=== PATIENT | male | born 1970 | race Caucasian/White ===

== ENCOUNTER → 2018-05-29 | Outpatient (CLI) | payer BC | LOC: M RAD 13:01 | DX: G56.22 Lesion of ulnar nerve, left upper limb (principal); M94.222 Chondromalacia, left elbow; M25.422 Effusion, left elbow | CPT/HCPCS: 73221 ==

== ENCOUNTER → 2019-12-21 | Outpatient (REF) | payer BC ==
[2019-12-21 17:13] LABS: BASO % 0.2 % (0.0-1.0); EOS # 0.2 10^3/uL (0.0-0.5); EOS % 2.2 % (0.0-3.0); HEMATOCRIT 45.2 % (42.0-52.0); HEMOGLOBIN 15.6 g/dl (13.5-17.5); LYMPH # 3.2 10^3/uL (1.5-5.0); LYMPH % 33.4 % (24.0-44.0); MEAN CORPUSCULAR HEMOGLOBIN 31.3 pg (27.0-33.0); MEAN CORPUSCULAR HGB CONC 34.5 g/dl (32.0-36.5); MEAN CORPUSCULAR VOLUME 90.6 fl (80.0-96.0); MONO # 0.9 10^3/uL (0.0-0.8); MONO % 9.3 % (0.0-5.0); NEUTROPHILS # 5.2 10^3/uL (1.5-8.5); NEUTROPHILS % 54.7 % (36.0-66.0); PLATELET COUNT, AUTOMATED 319 10^3/uL (150-450); RED BLOOD COUNT 4.99 10^6/uL (4.30-6.10); WHITE BLOOD COUNT 9.5 10^3/uL (4.0-10.0)
[2019-12-21 17:58] LABS: ALBUMIN 4.5 GM/DL (3.2-5.2); ALT/SGPT 39 U/L (12-78); BILIRUBIN,TOTAL 0.3 MG/DL (0.2-1.0); BLOOD UREA NITROGEN 19 MG/DL (7-18); C REACTIVE PROTEIN QUANTITATIV < 0.30 MG/DL (0.00-0.30); CALCIUM LEVEL 9.1 MG/DL (8.5-10.1); CARBON DIOXIDE LEVEL 25 MEQ/L (21-32); CHLORIDE LEVEL 106 MEQ/L (98-107); CREATININE FOR GFR 1.17 MG/DL (0.70-1.30); FERRITIN 180 NG/ML (26-388); GLOMERULAR FILTRATION RATE > 60.0 (>60); GLUCOSE, FASTING 97 MG/DL (70-100); IRON (FE) 107 UG/DL (65-175); RHEUMATOID FACTOR QUANT < 10.0 IU/ML (<15.0); SODIUM LEVEL 140 MEQ/L (136-145); TOTAL PROTEIN 7.4 GM/DL (6.4-8.2); URIC ACID 6.5 MG/DL (3.5-7.2)
[2019-12-21 18:11] LABS: ERYTHROCYTE SEDIMENTATION RATE 2 mm/hr (0-15)
[2019-12-22 11:59] LABS: HEPATITIS B SURFACE ANTIGEN NEGATIVE (NEGATIVE)
[2019-12-22 12:27] LABS: HEPATITIS C VIRUS ABY INDEX < 0.0 INDEX (<0.8)
[2019-12-24 00:08] LABS: CYCLIC CITRULLINATED PEPTIDE 8 units (0-19); HEPATITIS B CORE ANTIBODY IGG Negative (Negative)
== END ==
LOC: M SFHCRHEU 15:35
PROVIDERS: ATTEND Internal Medicine
DX: M25.50 Pain in unspecified joint (principal); E79.0 Hyperuricemia without signs of inflammatory arthritis and tophaceous disease

== ENCOUNTER → 2019-12-21 | Outpatient (CLI) | payer BC ==
--- NOTE | 2019-12-21 16:59 | REP ---
Clinical: Right foot pain. Technique: AP, lateral, bilateral oblique views of the right foot. Findings: Moderate arthritic changes at the first tarsometatarsal joint include subchondral sclerosis/heterogeneity, marginal spurring and joint space narrowing. Remainder examination demonstrates mild age-related changes. Lateral view demonstrates small calcaneal heal spur. Impression: Moderate arthritic changes at the first tarsometatarsal joint. Electronically Signed by Ronnell Kumar MD 12/21/2019 04:51 P
--- NOTE | 2019-12-21 17:07 | REP ---
Clinical: Polyarthralgia. Technique: AP, lateral, bilateral oblique views of the right and left hand. Findings: Right hand demonstrates mild arthritic changes at the first interphalangeal joint, first carpometacarpal joint, and interphalangeal joints including minimal subchondral sclerosis, joint space narrowing, and cortical irregularity. No acute fracture dislocation. Left hand demonstrates mild arthritic changes at the first interphalangeal joint, first carpometacarpal joint, and interphalangeal joints including minimal subchondral sclerosis, joint space narrowing, and cortical irregularity. No acute fracture dislocation. Impression: Mild symmetric arthritic degenerative changes. Electronically Signed by Ronnell Kumar MD 12/21/2019 04:59 P
== END ==
LOC: M RAD 16:00
PROVIDERS: ATTEND Internal Medicine
DX: M79.671 Pain in right foot (principal); M79.642 Pain in left hand; M79.641 Pain in right hand

== ENCOUNTER → 2020-03-20 | Outpatient (CLI) | payer BC ==
[~2020-03-20] MED LIST: HYDR-3713 PO; ZYLO300T6 PO
== END ==
LOC: M LABSMTC 11:02
PROVIDERS: ATTEND Anesthesiology
DX: Z01.818 Encounter for other preprocedural examination (principal); Z11.59 Encounter for screening for other viral diseases
CPT/HCPCS: C9803; U0002

== ENCOUNTER 2020-03-22 06:12 | Day surgery (SDC) | payer BC ==
[~2020-03-22] VITALS: Ht 195.6 cm; Wt 141.1 kg
[~2020-03-22 06:12] MED LIST changes: -HYDR-3713 PO
[2020-03-22] MEDS ORDERED: dexameTHASONE 4 MG/ML 1ML VIAL (J1100 PER 1MG) As Ordered ONE ×2 (06:56→07:13)
[2020-03-22] MEDS ORDERED: BUPIVACAINE HCL 0.5% 10ML VIAL As Ordered ONE (06:56)
[2020-03-22] MEDS ORDERED: LIDOCAINE 1% MDV 20ML VIAL As Ordered ONE (06:56)
[2020-03-22] MEDS ORDERED: LR 1,000 ML IV ONE (07:00)
[2020-03-22] MEDS ORDERED: ceFAZolin SOD 2 GM in IV 1 EA IV ONE (07:00)
[2020-03-22] MEDS ORDERED: propofoL 200 MG/20 ML VIAL As Ordered ONE ×2 (07:12→07:58)
[2020-03-22] MEDS ORDERED: LIDOCAINE 2% 100MG/5ML SDV (FOR ANES.) As Ordered ONE (07:12)
[2020-03-22] MEDS ORDERED: MIDAZOLAM INJ 2MG/2ML VIAL (J2250 PER 1MG) As Ordered ONE (07:13)
[2020-03-22] MEDS ORDERED: fentaNYL 100 MCG/2 ML INJECTION (J3010) As Ordered ONE (07:13)
[2020-03-22] MEDS ORDERED: ONDANSETRON 4MG/2ML VIAL As Ordered ONE (07:13)
[2020-03-22] MEDS ORDERED: HYDR-3713 PO ×2 (08:29→16:03)
[2020-03-22 09:50] VITALS: BP 133/60
--- NOTE | 2020-03-24 07:13 | RO ---
DATE OF PROCEDURE: 03/22/2020 PREOPERATIVE DIAGNOSIS: Right foot hallux limitus. POSTOPERATIVE DIAGNOSIS: Right foot hallux limitus. PROCEDURE: Right foot 1st metatarsophalangeal joint cheilectomy. SURGEON: Maury Edward DPM SKIVER MACHINE: ANESTHESIA: Monitored anesthesia care with preoperative injection of 20 mL of a 1:1 mixture of 1% lidocaine plain and 0.5% Marcaine plain. ESTIMATED BLOOD LOSS: Minimal. MATERIALS: #3-0 and #4-0 Vicryl, #4-0 nylon. INJECTABLES: 1 mL Decadron 4 mg/mL. COMPLICATION: None. CONDITION: Stable. DESCRIPTION OF PROCEDURE: Andrea Zhou is a 49-year-old male who presents to [facility] with painful right big toe joint. He presents today for surgical correction. The patient, side, and site were identified and marked in preoperative holding area. Consent was reviewed and obtained. All risks, complications, and alternatives to the procedure were explained to the patient in detail, and all questions were answered. Patient was brought to the operating room and placed on the operating room table in supine position. Monitored anesthesia care was delivered by the anesthesia team. Preoperative injection of 20 mL of a 1:1 mixture of 1% lidocaine plain and 0.5% Marcaine plain was injected to the right foot. Right foot was prepped and draped in the normal sterile fashion. Tourniquet was applied to the right ankle and inflated at 250 mmHg. Dorsal incision was drawn and carried through with #15 blade. Dissection was carried until the 1st metatarsophalangeal joint capsule was noted. A T capsulotomy was performed, exposing the metatarsal joint and head. Large osteophytes were immediately noted at the dorsal surface of the joint. These were removed with #15 blade and with a rongeur. A large exostosis was noted on the 1st metatarsal head as well. Some spurring on the base of the proximal phalanx. This was removed with sagittal saw, rongeur, and smoothed with rasp. Site was irrigated with normal saline. Capsular repair was performed using #3-0 Vicryl, subcutaneous closure with #4-0 Vicryl, and skin closure with #4-0 nylon. 1 mL of Decadron was injected. Sterile dressings were applied. Tourniquet was deflated. Patient was brought to postanesthesia care unit (PACU) with vital signs stable and neurovascular status intact. He will be weightbearing as tolerated and followup in office in 1 day.
== END 2020-03-22 10:00 | disposition home or self-care (01) ==
LOC: M SDC 06:12
PROVIDERS: ATTEND Podiatrist Foot & Ankle Surgery
DX: M20.21 Hallux rigidus, right foot (principal); M10.9 Gout, unspecified; Z88.8 Allergy status to other drugs, medicaments and biological substances; Z87.891 Personal history of nicotine dependence; Z79.899 Other long term (current) drug therapy
CPT/HCPCS: 28289; 88300; J0690; J1100; J2250; J2405; J3010

== ENCOUNTER → 2020-07-24 | Outpatient (REF) | payer BC ==
[~2020-07-24] MED LIST changes: +HYDR-3713 PO
== END ==
LOC: M LAB REF 09:42
PROVIDERS: ATTEND Physician Assistant
DX: D23.72 Other benign neoplasm of skin of left lower limb, including hip (principal)